=== PATIENT | male | born 1955 | race Caucasian/White ===

== ENCOUNTER → 2019-12-19 | Outpatient (CLI) | payer BC ==
[~2019-12-19] MED LIST: FUROSEMIDE INJ 10 MG/ML 4 ML VIAL ONE
--- NOTE | 2019-12-19 21:12 | Diagnostic Imaging Report ---
Renal Scan with Lasix Washout Reason for exam: Renal calculus Technique: Following intravenous administration of 11 mCi of Tc-99m MAG3, dynamic images of the kidneys in the posterior projection were obtained through 40 minutes. Lasix 40 mg was administered intravenously at 10 minutes post injection of the tracer. Report: Left kidney: Perfusion of the left kidney is prompt. The kidney has a reniform shape although is overall reduced in size. Extraction of tracer from the blood pool by the renal parenchyma is decreased. Clearance of tracer from the renal parenchyma begins prompt but is not complete by the end of the study. The pelvicalyceal system is not dilated. Physiologic pooling of tracer is seen within the pelvicalyceal system. Drainage of tracer from the pelvicalyceal system is prompt and adequate prior to administration of Lasix. No significant stasis of tracer is seen within the left ureter. Right kidney: Perfusion to the right kidney is prompt. The right kidney has a reniform shape but is overall reduced in size and is smaller than the left kidney. Extraction of tracer by the renal parenchyma is decreased. Clearance of tracer from the renal parenchyma begins promptly but is not complete by the end of the study. A dilated calyx is present in the upper pole of the kidney but otherwise, no dilation of pelvicalyceal system is present. Increased pooling of tracer is seen within the dilated upper pole calyx. No net drainage of tracer from the pelvicalyceal system is seen prior to administration of Lasix. Washout of tracer from the pelvicalyceal system is prolonged following administration of Lasix with T-1/2 of 30-35 minutes (normal less than 15 minutes). The major contributor to the delayed washout of the pelvicalyceal system is the dilated upper pole calyx that shows no washout; the remainder of the pelvicalyceal system washes out adequately. No significant stasis of tracer is seen within the right ureter. Differential renal function: The left kidney contributes 68% of total renal function and the right kidney contributes 32% (normal 43-57%). Impression: 1. Scan evidence of mild medical renal disease in the left kidney. No hydronephrosis is present. No physiologically significant obstruction of the renal collecting system is present. 2. Mild medical renal disease is present in the right kidney. Loss of renal parenchyma is also present and this accounts for the decreased differential function of 32%. No hydronephrosis is present, however, a dilated calyx in the upper pole of the kidney shows physiologically significant obstruction and accounts for the prolonged T-1/2 of 30-35 minutes for washout after Lasix. Signed by: Dr. Lizzie Nash M.D. on 12/19/2019 9:09 PM
== END ==
LOC: NM 09:09
PROVIDERS: ATTEND Urology
DX: N20.0 Calculus of kidney (principal); T19.1XXD Foreign body in bladder, subsequent encounter
CPT/HCPCS: 78708; A9562; J1940

== ENCOUNTER → 2020-01-04 | Day surgery (SDC) | payer BC ==
[2020-01-01 10:10] LABS: BASOPHILS # (AUTO) 0.1 (0.0-0.1); BASOPHILS % 0.9 % (0.0-1.0); EOSINOPHILS # (AUTO) 0.5 (0.0-0.4); EOSINOPHILS % 6.6 % (0.0-6.0); HEMATOCRIT 45.9 % (38.2-49.6); LYMPHOCYTES # (AUTO) 1.4 (1.0-3.2); LYMPHOCYTES % 21.2 % (18.0-39.1); MEAN CORPUSCULAR HEMOGLOBIN 28.5 pg (28-32); MEAN CORPUSCULAR HGB CONC 32.7 g/dL (31-35); MEAN CORPUSCULAR VOLUME 87.1 fL (81-99); MONOCYTES # (AUTO) 0.9 (0.2-0.8); MONOCYTES % 12.8 % (4.4-11.3); NEUTROPHILS % 58.4 % (38.7-80.0); PLATELET COUNT 302 x10e3/uL (140-360); RED BLOOD COUNT 5.27 x10e6/uL (4.3-5.7); RED CELL DISTRIBUTION WIDTH 13.4 % (11.7-14.4)
--- NOTE | 2020-01-01 10:32 | Diagnostic Imaging Report ---
TECHNIQUE: Frontal view of the chest. INDICATION: ^PRE OP COMPARISON: None DISCUSSION: Lines and hardware: Partially visualized cervical fusion changes are noted. Heart and mediastinum: Within normal limits. Lungs and pleura: No focal airspace consolidation. No pleural effusion. No pneumothorax. Soft tissues and bones: No acute abnormality. IMPRESSION: Negative for acute intrathoracic process. Signed by: Waqar Holcomb MD on 01/01/2020 10:29 AM
[2020-01-01 10:39] LABS: ANION GAP 14.1 mmol/L (8-16); CALCIUM 9.7 mg/dL (8.4-10.2); CREATININE, SERUM 1.21 mg/dL (0.72-1.25); POTASSIUM 4.1 mmol/L (3.5-5.1)
[~2020-01-04] MED LIST changes: +ASPIRIN81 MG PO; +BISOPROLOL-HCT1 EAC1 PO; -FUROSEMIDE INJ 10 MG/ML 4 ML VIAL ONE; +GENTAMICIN 80MG/NS 100 ML 100 ML IV ONE; +IOPAMIDOL 300MG/ML 50ML INFUS..BTL IV ONE; +TYLENOL # 31 EA PO
[2020-01-04 09:50] VITALS: BP 138/74
--- NOTE | 2020-01-04 15:18 | Operative Report ---
DATE OF PROCEDURE: 01/04/2020 SURGEON: Jad Sellers MD PREOPERATIVE DIAGNOSES: 1. A 2.5 x 2.6 cm right ureteropelvic junction calculus stone. 2. Indwelling right ureteral stent. 3. Right hydronephrosis. POSTOPERATIVE DIAGNOSES: 1. A 2.5 x 2.6 cm right ureteropelvic junction calculus stone. 2. Indwelling right ureteral stent. 3. Right hydronephrosis. PROCEDURES: 1. Staged cystoscopy with complicated removal of a right indwelling ureteral stent (entirely separate procedure in a staged fashion for ridding of encrusted right ureteral stent). 2. Staged right-sided ureteroscopy with laser lithotripsy (entirely separate procedure for right ureteral calculus). 3. Staged cystoscopy with stent placement (entirely separate procedure for diagnosis of right hydronephrosis, not required for every laser lithotripsy). 4. Supervision of fluoroscopy. 5. Interpretation of retrograde pyelography. ANESTHESIA: General. ESTIMATED BLOOD LOSS: Minimal. COMPLICATIONS: None. INDICATIONS FOR PROCEDURE: Mr. Bryson is a very pleasant 64-year-old male with a history of very large greater than 1 inch UPJ stone on the right side, status post prior lithotripsy, now presenting for attempted ureteroscopy. He voiced understanding of the options, alternatives, risks, and benefits and elected to proceed. PROCEDURE IN DETAIL: After informed consent was obtained, the patient was taken to the operative suite, placed supine on the operative table, underwent general anesthesia by the anesthesia service. A 21-Burmese cystoscope was inserted per urethra and normal urethra was noted. The stent was grasped and removed. Attempt was made to catheterize, this failed. A guidewire was inserted with moderate difficulty. An angle tipped Glidewire was managed to be negotiated proximal to the stone. The dual-lumen was advanced over this. A second superstiff wire was advanced. Flexible ureteroscope was advanced to the level of stone. Utilizing a superstiff guidewire as I could not get any other guidewire proximal to the stone exception of the superstiff into the angle tipped glide. At this time utilizing a 200 micron laser fiber, we lasered utilizing a setting of 24 peters total. The stone was an exceedingly hard stone, one of the hardest I have seen. Little progresses made with the laser fiber despite increasing the settings dramatically to the maximum for 200 micron fiber. At this time oozing from cavitation from the laser began to decrease visualization with very little progress being made as the operative procedure managed to get a 6 x [address] with a coil in the renal pelvis and a coil in the patient's bladder. The bladder was then drained. The patient was awakened from anesthesia and transported to recovery room in excellent condition. I spoke with the patient's family explaining the findings that the patient may need a laparoscopic or open procedure and likely a percutaneous nephrostomy being the stone in the ureter may present the same problems as from below. Supervision of fluoroscopy, interpretation of retrograde pyelography: I was present for the entire procedure and I supervised the use of fluoroscopy. There was no radiologist present. Attention was turned to the right ureter, which was catheterized. Retrograde pyelogram was performed showing complete obstruction of the large proximal ureteral stone. Postoperative views reveal right ureteral stent in adequate position. MD NIVIA Alves/LIBRADO /[id number]
== END | disposition home or self-care (01) ==
LOC: OR 06:13
PROVIDERS: ATTEND Urology
DX: N20.1 Calculus of ureter (principal); N13.30 Unspecified hydronephrosis; N39.0 Urinary tract infection, site not specified; N40.1 Benign prostatic hyperplasia with lower urinary tract symptoms; N13.8 Other obstructive and reflux uropathy; K42.9 Umbilical hernia without obstruction or gangrene; I45.10 Unspecified right bundle-branch block; I10 Essential (primary) hypertension; Z46.6 Encounter for fitting and adjustment of urinary device; Z01.810 Encounter for preprocedural cardiovascular examination; Z01.812 Encounter for preprocedural laboratory examination; Z01.818 Encounter for other preprocedural examination; Z20.828 Contact with and (suspected) exposure to other viral communicable diseases; Z79.82 Long term (current) use of aspirin; Z68.33 Body mass index [BMI] 33.0-33.9, adult
CPT/HCPCS: 36415; 52356; 71046; 74420; 80048; 85025; 93005; C1758 ×2; C1769 ×2; C2617; J1580; Q9967; U0002